=== PATIENT | male | born 1980 | race African-American/Black ===

== ENCOUNTER 2018-04-28 15:59 | Emergency (ER) | payer OTHER ==
[~2018-04-28] VITALS: Ht 188 cm; Wt 104.3 kg
== END 2018-04-28 18:09 | disposition home or self-care (01) ==
LOC: ER 15:59
DX: S43.085A Other dislocation of left shoulder joint, initial encounter (principal); X50.0XXA Overexertion from strenuous movement or load, initial encounter; Y93.89 Activity, other specified; Y92.832 Beach as the place of occurrence of the external cause; Y99.8 Other external cause status